=== PATIENT | male | born 1955 | race Caucasian/White ===

== ENCOUNTER 2019-07-09 16:43 | Inpatient (IN) | payer MEDICARE ==
[~2019-07-09] VITALS: Ht 182.9 cm; Wt 134.5 kg
[2019-07-09] MEDS ORDERED: SODIUM POLYSTYRENE SULFONATE 15 GM/60 ML ORAL.SUSP. PO ONE ×2 (18:30→20:00)
[2019-07-09] MEDS ORDERED: FUROSEMIDE 40 MG/4 ML VIAL IVP ONE ×2 (18:30→19:00)
[2019-07-09] MEDS ORDERED: FURO20TA3 PO (18:50)
[2019-07-09] MEDS ORDERED: LISI-334 PO (18:51)
[2019-07-09 18:56] VITALS: BP 128/75
[2019-07-09 19:16] LABS: BASO % 1 % (0-3); EOS % 1 % (0-3); HEMATOCRIT 42.9 % (39.0-53.0); HEMOGLOBIN 13.7 g/dL (13.0-17.5); LYMPH # 0.8 x10^3/uL (1.0-4.8); LYMPH % 12 % (24-48); MEAN CORPUSCULAR HEMOGLOBIN 28 pg (25-35); MEAN CORPUSCULAR HGB CONC 32 g/dL (31-37); MEAN CORPUSCULAR VOLUME 89 fL (79-100); MONO # 0.8 x10^3/uL (0.0-1.1); MONO % 12 % (0-9); NEUT # 4.8 x10^3uL (1.8-7.7); NEUT % 75 % (31-73); PLATELET COUNT 198 x10^3/uL (140-400); RED BLOOD COUNT 4.84 x10^6/uL (4.30-5.70); RED CELL DISTRIBUTION WIDTH 15.5 % (11.5-14.5); WHITE BLOOD COUNT 6.4 x10^3/uL (4.0-11.0)
[2019-07-09 19:37] VITALS: BP 145/88
[2019-07-09 19:41] LABS: ALBUMIN 3.3 g/dL (3.4-5.0); ALBUMIN/GLOBULIN RATIO 0.9 (1.0-1.7); CALCIUM 8.8 mg/dL (8.5-10.1); CREATININE 1.8 mg/dL (0.7-1.3); GFR 38.1; POTASSIUM 5.1 mmol/L (3.5-5.1); TOTAL BILIRUBIN 0.6 mg/dL (0.2-1.0); TOTAL PROTEIN 6.9 g/dL (6.4-8.2)
[2019-07-09] MEDS: HEPARIN for SUB-Q USE 5,000 UNIT/ML VIAL. SQ SCH (21:49)
[2019-07-09 21:53] LABS: BILIRUBIN,URINE NEG (NEG); CLARITY,URINE CLEAR; COLOR,URINE STRAW; GLUCOSE,URINE NEG (NEG)
[2019-07-09 21:54] LABS: BACTERIA,URINE 0 /HPF (0-FEW); NITRITE,URINE NEG (NEG); RBC,URINE 0 /HPF (0-2); SQUAMOUS EPITHELIAL CELL,UR OCC /LPF; UROBILINOGEN,URINE 0.2 mg/dL (0.2 mg/dL); WBC,URINE RARE /HPF (0-4)
[2019-07-09 22:20] VITALS: BP 108/71
[2019-07-10 05:06] VITALS: BP 149/84
[2019-07-10] MEDS: HEPARIN for SUB-Q USE 5,000 UNIT/ML VIAL. SQ SCH ×2 (05:09→15:22)
[2019-07-10 06:48] LABS: CALCIUM 8.7 mg/dL (8.5-10.1); CREATININE 1.7 mg/dL (0.7-1.3); GFR 40.7; POTASSIUM 4.8 mmol/L (3.5-5.1)
[2019-07-10 10:43] VITALS: BP 123/81
--- NOTE | 2019-07-10 10:58 | RAD ---
Exam performed: 2 view chest HISTORY: Shortness of breath. DATE OF SERVICE: 07/09/2019. COMPARISON: None available FINDINGS: PA and lateral views chest findings: Cardiomegaly. Previous median sternotomy and prosthetic valve noted. A prevascular is unremarkable. Lungs are well-expanded and clear. No focal infiltrates, effusion or pneumothorax seen. Bones are normal. IMPRESSION: Cardiomegaly with median sternotomy and prosthetic valve. No acute abnormality seen Electronically signed by: Zandra Burton MD (07/10/2019 10:55 AM) [facility]
--- NOTE | 2019-07-10 13:23 | PDOC ---
PROVIDER NOTE PROVIDER NOTE PROVIDER NOTE Cardiology Consultation Note: Reason for consultation: HF/dyspnea. HPI: 63 y.o male with pmhx as noted below presents to the hospital with exertional dyspnea for a few days. Denies any associated angina, orthopnea or PND. No significant changes to his lower extremity edema/chronic venous stasis. Seen by [facility] on 07/07/2019 and had his amiodarone and metoprolol discontinued. He also had an echo which revealed normal LV function with an EF of 60% and moderate pulmonary HTN. He moved from [place], [place] and had valve/bypass surgery in 2017. Since then he has been overall stable and works at [employer]. Pmhx: 1. CAD s/p CABG per patient 2. Aortic stenosis (probable bicuspid) s/p aortic valve - bioprosthetic 3. HTN 4. DLP 5. ? CKD with Cr baseline unknown Sochx: No alcohol, tob or illicits. Famhx: NC ROS: negative unless otherwise noted above in HPI. ALL: NKDA Meds reviewed: Including lasix and lisinopril. Physical Exam: Constitutional: Well developed, well nourished, no acute distress, non-toxic appearance, positive interaction, playful. HENT: Normocephalic, atraumatic, Eyes: conjunctiva normal, no discharge. Neck: Normal range of motion, no tenderness, supple, no stridor. Cardiovascular: Normal heart rate, normal rhythm, no murmurs, no rubs, no gallops. Thorax and Lungs: Normal breath sounds, no respiratory distress, no wheezing, no chest tenderness, no retractions, no accessory muscle use. Abdomen: Obese, soft. Skin: Warm, dry, no erythema, no rash. Extremeties:1+ radial pulses. Bilateral chronic venous stasis changes. No pitting edema. Musculoskeletal: Good ROM in all major joints, no tenderness to palpation or major deformities noted. Neurologic: Alert and oriented X 3, normal motor function, normal sensory function, no focal deficits noted. Psychologic: Affect normal, judgement normal, mood normal. LABS REVIEWED: CBC wnl Cr 1.8 BNP 2800 EKG: SR CXR: No significant edema. Echo from OSH on 07/07/2019: EF 55%. Moderate pulmonary HTN Impression: 1. Probable acute on chronic diastolic HF 2. CKD - 3. CAD presumed s/p bioprosthetic valve. Plan: 1. Agree with diuresis with lasix. 2. Await OSH records. 3. If no improvement in diuretics and continues to have dyspnea, may need further evaluation with R/LHC 4. Await venous doppler study. Thanks. JULIO CÉSAR BROWN MD Jul 10, 2019 13:23
--- NOTE | 2019-07-10 13:57 | RAD ---
Bilateral Leg Venous Doppler Ultrasound, and 2018 Indication: Bilateral lower extremity swelling Comparison: None available Procedure: Real-time grayscale, color flow color duplex Doppler and spectral analysis are obtained with and without compression in the area of the common femoral vein, superficial femoral vein - femoral vein junction, main femoral vein (superficial femoral vein) and popliteal vein. Veins of the proximal calf are also imaged. Findings: There is normal duplex flow, color flow and compressibility of all visualized vein segments. No evidence of deep venous thrombus is present. Impression: Negative venous Doppler of bilateral lower extremity Electronically signed by: Zandra Burton MD (07/10/2019 1:54 PM) [facility]
[2019-07-10] MEDS ORDERED: HEPARIN for SUB-Q USE 5,000 UNIT/ML VIAL. SQ SCH (14:00)
--- NOTE | 2019-07-10 14:04 | RAD ---
Exam performed: Left lower extremity arterial Doppler. HISTORY: Claudication, left leg pain. DATE OF SERVICE: 07/10/2019. COMPARISON: None available TECHNIQUE: Real-time grayscale, color flow, duplex Doppler and spectral analysis of the left lower extremity arterial system is performed and images are obtained. FINDINGS: Mild scattered plaquing is seen, dose significant calcified atheromatous plaquing is identified. Doppler interrogation reveals normal triphasic waveforms throughout. No areas of focally elevated peak systolic velocities is focal stenosis seen. IMPRESSION: No convincing evidence of focal stenosis seen. Electronically signed by: Zandra Burton MD (07/10/2019 2:01 PM) [facility]
[2019-07-10] MEDS: FUROSEMIDE 40 MG/4 ML VIAL IVP SCH (14:17)
[2019-07-10 14:19] VITALS: BP 138/82
--- NOTE | 2019-07-10 18:39 | RAD ---
NUCLEAR MEDICINE VENTILATION PERFUSION SCAN History: Shortness of air x2 days, elevated d-dimer. Comparison: Two-view chest, prior day. Technique: Patient initially ventilated with 12.5 mCi of xenon-133 gas. Anterior and posterior imaging of the lungs during initial breath-hold, equilibrium and, washout phase images is performed. Perfusion portion performed after intravenous administration of 5.5 mCi Technetium 99m MAA. Multiple projection planar images of the lungs were obtained. Findings: The initial breath-hold ventilation images are homogeneous. There is no significant retention of tracer on the washout phase images. There is markedly decreased perfusion to the right lung compared to the ventilation images. There is central perfusion but there are large mismatched defects in the right upper and lower lobes. There is also a large mismatched defect in the lateral left lower lobe. IMPRESSION: High probability for pulmonary embolus. Findings discussed with Cheryl patient's nurse at 07/10/2019 6:33 PM. FOR INTERNAL CODING PURPOSES Critical result: RESULT CODE: (C) Electronically signed by: Velasquez Jaime MD (07/10/2019 6:36 PM) [id number]
[2019-07-10] MEDS ORDERED: HEPARIN for IV BOLUS 10,000 UNIT/10 ML VIAL. IV PRN ×2 (18:45)
[2019-07-10] MEDS ORDERED: HEPARIN for IV BOLUS 10,000 UNIT/10 ML VIAL. IV ONE (19:00)
[2019-07-10 19:15] VITALS: BP 133/81
[2019-07-10 19:28] LABS: BASO % 1 % (0-3); EOS # 0.1 x10^3/uL (0.0-0.7); EOS % 1 % (0-3); HEMATOCRIT 41.7 % (39.0-53.0); HEMOGLOBIN 13.7 g/dL (13.0-17.5); LYMPH % 15 % (24-48); MEAN CORPUSCULAR HEMOGLOBIN 29 pg (25-35); MEAN CORPUSCULAR HGB CONC 33 g/dL (31-37); MEAN CORPUSCULAR VOLUME 88 fL (79-100); MONO # 0.7 x10^3/uL (0.0-1.1); MONO % 11 % (0-9); NEUT # 4.8 x10^3uL (1.8-7.7); NEUT % 73 % (31-73); PLATELET COUNT 191 x10^3/uL (140-400); RED BLOOD COUNT 4.74 x10^6/uL (4.30-5.70); RED CELL DISTRIBUTION WIDTH 15.5 % (11.5-14.5); WHITE BLOOD COUNT 6.6 x10^3/uL (4.0-11.0)
[2019-07-10] MEDS: HEPARIN 25,000UTS/500ML PREMIX 500 ML IV PRN (20:02)
[2019-07-10 23:10] VITALS: BP 140/83
--- NOTE | 2019-07-11 00:50 | PN ---
DATE: SUBJECTIVE: The patient has been having extreme dyspnea, recently was at [facility] and had his amiodarone and metoprolol decreased or stopped. The patient has a history of coronary artery disease, aortic stenosis, bicuspid valve and bioprosthetic, hypertension, DLP, and CKD. The patient had a surgery done in [place]. Ejection fraction is 60%. The patient seems to be doing a little better this morning. He does have marked venous stasis to his legs with marked hyperpigmentation to the legs themselves and otherwise resting fairly comfortably. OBJECTIVE: VITAL SIGNS: Blood pressure 120/80, respiratory rate 20, pulse 54, afebrile. GENERAL: The patient is alert and oriented. LUNGS: Diminished throughout, poor movement of air, some crackles in the bases, otherwise unremarkable. CARDIOVASCULAR: Regular sinus rhythm, S1, S2. 1/6 systolic ejection murmur. ABDOMEN: Soft, nontender, protuberant. EXTREMITIES: Right leg is markedly swollen compared to that of the left with marked hyperpigmentation to those legs. LABORATORY DATA: Chest x-ray showed cardiomegaly, prosthetic valve, but otherwise unremarkable. The patient otherwise continued to be monitored carefully, make further evaluation on him with venous and arterial Dopplers on his legs and make further evaluation per Cardiology. He is on subcutaneous heparin. He did have a positive D-dimer, which would not be unusual, but he is going to have a V/Q scan because of an elevated creatinine of 1.7, GFR of only 40. We will go ahead and get that performed. IMPRESSION: Exertional dyspnea, artificial valve replacement, severe venous stasis, chronic kidney disease stage 3, elevated BNP of approximately 2900. PLAN: Continue to monitor him, have Cardiology review him and make further adjustments on his medications. AIDE STARKS MD DR: CHRISTIAN/coco JOB#: [id number] / [id number]
[2019-07-11 06:01] VITALS: BP 143/84
[2019-07-11 07:01] LABS: BASO % 1 % (0-3); EOS # 0.1 x10^3/uL (0.0-0.7); EOS % 2 % (0-3); HEMATOCRIT 40.8 % (39.0-53.0); HEMOGLOBIN 13.3 g/dL (13.0-17.5); LYMPH # 1.1 x10^3/uL (1.0-4.8); LYMPH % 20 % (24-48); MEAN CORPUSCULAR HEMOGLOBIN 29 pg (25-35); MEAN CORPUSCULAR HGB CONC 33 g/dL (31-37); MEAN CORPUSCULAR VOLUME 88 fL (79-100); MONO # 0.6 x10^3/uL (0.0-1.1); MONO % 12 % (0-9); NEUT # 3.4 x10^3uL (1.8-7.7); NEUT % 65 % (31-73); PLATELET COUNT 185 x10^3/uL (140-400); RED BLOOD COUNT 4.64 x10^6/uL (4.30-5.70); RED CELL DISTRIBUTION WIDTH 15.2 % (11.5-14.5); WHITE BLOOD COUNT 5.3 x10^3/uL (4.0-11.0)
[2019-07-11 07:07] LABS: CALCIUM 8.9 mg/dL (8.5-10.1); CREATININE 1.6 mg/dL (0.7-1.3); GFR 43.6
[2019-07-11] MEDS: FUROSEMIDE 40 MG/4 ML VIAL IVP SCH (08:17)
[2019-07-11] MEDS: LISINOPRIL 20 MG TABLET PO SCH (08:17)
[2019-07-11] MEDS: HEPARIN 25,000UTS/500ML PREMIX 500 ML IV PRN (09:27)
[2019-07-11 11:33] VITALS: BP 118/71
--- NOTE | 2019-07-11 13:26 | PN ---
DATE: SUBJECTIVE: A 63-year-old gentleman in with shortness of breath and heart failure. The patient had a positive D-dimer. He had bilateral pulmonary emboli according to his pulmonary perfusion scan. He also has decreased renal function. Says he is feeling better on a heparin drip. ALLERGIES: The patient has no known drug allergies. OBJECTIVE: VITAL SIGNS: Blood pressure 143/80, respiratory rate 18, pulse 55 down to 49, afebrile, oxygen saturation 93. GENERAL: The patient otherwise is alert and oriented x 3. Speech is fluent, spontaneous, appropriate. He is more energetic. LUNGS: Diminished throughout, poor movement of air, but clearer than they have been. CARDIOVASCULAR: Regular sinus rhythm. He has history of 2 valves replaced. ABDOMEN: Protuberant, soft, and nontender. EXTREMITIES: No clubbing or cyanosis. Marked hyperpigmentation consistent with venous stasis insufficiency. PLAN: Otherwise, he is continued to be monitored carefully, make further evaluation on him as indicated. Continue on a heparin drip until at least tomorrow and then switch him over to oral. Cardiology to review him as well and make further evaluation on him as indicated. AIDE STARKS MD DR: CHRISTIAN/coco JOB#: [id number] / [id number]
--- NOTE | 2019-07-11 13:41 | PN ---
DATE: SUBJECTIVE: A 63-year-old male in with some chest pain, shortness of breath. The patient's D-dimer elevated. V/Q positive for blood clots bilaterally, so we placed him on a heparin drip. Creatinine is elevated at 1.7. The patient otherwise is resting fairly comfortably, presently on his heparin drip. OBJECTIVE: VITAL SIGNS: Blood pressure 130/80, respiratory rate 18, pulse 52, oxygen saturation 91-93% and afebrile. LUNGS: Clear. CARDIOVASCULAR: Regular sinus rhythm except for the click of his prosthetic valve. ABDOMEN: Soft. EXTREMITIES: No clubbing, cyanosis. Marked hyperpigmentation noted again to the legs consistent with his stasis dermatitis. IMPRESSION: Pulmonary embolus bilaterally. AIDE STARKS MD DR: CHRISTIAN/coco JOB#: [id number] / [id number]
--- NOTE | 2019-07-11 13:47 | RAD ---
Renal ultrasound complete History: Decrease renal function Sonographic examination of the kidneys was performed and multiple static images were obtained. Right kidney: The right kidney is seen with no hydronephrosis and measures 13 cm in length. Left kidney: The left kidney is seen with no hydronephrosis and measures 12 cm in length. Urinary bladder: The urinary bladder appears normal however there is a 124 mm post void residual. Impression: No hydronephrosis. Post void residual in the urinary bladder. Electronically signed by: Anthony Walker III, MD (07/11/2019 1:44 PM) [facility]
--- NOTE | 2019-07-11 14:44 | PDOC ---
PROVIDER NOTE PROVIDER NOTE PROVIDER NOTE No acute events overnight V/Q scan is high probabiliy O: Chronic venous stasis changes. Clear lungs Regular heart tones. Labs reviewed. Imaging reviewed. Impression: 1. mild acute on chronic diastolic HF 2. Dyspnea likely related to P.E. Plan 1. Nothing further from CV standpoint. Await OSH records 2. Continue anticoagulation. 3. Patient does not have mechanical valve, it is bioprosthetic, ok to use eliquis/xarelto for p.e. Thanks. pls call with questions. JULIO CÉSAR BROWN MD Jul 11, 2019 14:44
[2019-07-11 15:33] VITALS: BP 105/77
[2019-07-11 15:50] VITALS: BP 105/77
[2019-07-11 19:28] VITALS: BP 122/77
[2019-07-11 22:46] VITALS: BP 128/85
[2019-07-12] MEDS: HEPARIN 25,000UTS/500ML PREMIX 500 ML IV PRN (00:02)
[2019-07-12 05:24] VITALS: BP 158/92
--- NOTE | 2019-07-12 08:18 | PDOC ---
CARDIO Progress Notes Date & Time Date of Service DATE: 07/12/19 TIME: 08:10 Time of Evaluation 08:10 Subjective Notes breathing much better. Vitals Vitals Vital Signs Date Time Temp Pulse Resp B/P (MAP) Pulse Ox O2 Delivery O2 Flow Rate FiO2 07/12/19 05:24 97.5 58 20 158/92 (114) 92 Room Air 07/11/19 22:46 2.0 Weight Weight [ ] Input and Output I.O. Intake and Output 07/12/19 07:00 Intake Total 2180 ml Output Total 200 ml Balance 1980 ml Intake Oral 1600 ml IV Total 580 ml Output Urine Total 200 ml # Voids 3 Laboratory Labs Laboratory Tests Test 07/10/19 18:45 07/11/19 02:00 07/11/19 06:24 07/11/19 08:40 White Blood Count 6.6 x10^3/uL (4.0-11.0) 5.3 x10^3/uL (4.0-11.0) Red Blood Count 4.74 x10^6/uL (4.30-5.70) 4.64 x10^6/uL (4.30-5.70) Hemoglobin 13.7 g/dL (13.0-17.5) 13.3 g/dL (13.0-17.5) Hematocrit 41.7 % (39.0-53.0) 40.8 % (39.0-53.0) Mean Corpuscular Volume 88 fL (79-100) 88 fL (79-100) Mean Corpuscular Hemoglobin 29 pg (25-35) 29 pg (25-35) Mean Corpuscular Hemoglobin Concent 33 g/dL (31-37) 33 g/dL (31-37) Red Cell Distribution Width 15.5 % (11.5-14.5) 15.2 % (11.5-14.5) Platelet Count 191 x10^3/uL (140-400) 185 x10^3/uL (140-400) Neutrophils (%) (Auto) 73 % (31-73) 65 % (31-73) Lymphocytes (%) (Auto) 15 % (24-48) 20 % (24-48) Monocytes (%) (Auto) 11 % (0-9) 12 % (0-9) Eosinophils (%) (Auto) 1 % (0-3) 2 % (0-3) Basophils (%) (Auto) 1 % (0-3) 1 % (0-3) Neutrophils # (Auto) 4.8 x10^3uL (1.8-7.7) 3.4 x10^3uL (1.8-7.7) Lymphocytes # (Auto) 1.0 x10^3/uL (1.0-4.8) 1.1 x10^3/uL (1.0-4.8) Monocytes # (Auto) 0.7 x10^3/uL (0.0-1.1) 0.6 x10^3/uL (0.0-1.1) Eosinophils # (Auto) 0.1 x10^3/uL (0.0-0.7) 0.1 x10^3/uL (0.0-0.7) Basophils # (Auto) 0.0 x10^3/uL (0.0-0.2) 0.0 x10^3/uL (0.0-0.2) Prothrombin Time 10.6 SEC (9.4-11.4) Prothromb Time International Ratio 1.0 (0.9-1.1) Activated Partial Thromboplast Time 26 SEC (23-33) 87 SEC (23-33) 59 SEC (23-33) Sodium Level 138 mmol/L (136-145) Potassium Level 4.0 mmol/L (3.5-5.1) Chloride Level 104 mmol/L (98-107) Carbon Dioxide Level 28 mmol/L (21-32) Anion Gap 6 (6-14) Blood Urea Nitrogen 32 mg/dL (8-26) Creatinine 1.6 mg/dL (0.7-1.3) Estimated GFR (Cockcroft-Gault) 43.6 Glucose Level 84 mg/dL (70-99) Calcium Level 8.9 mg/dL (8.5-10.1) Test 07/12/19 06:06 Platelet Count 196 x10^3/uL (140-400) Activated Partial Thromboplast Time 47 SEC (23-33) Physical Exams HEENT: Neck Supple W Full Motion Chest: Symmetric Lungs: Clear to Auscultation, Other (diminished bases) Heart: S1S2, RRR, other (2/ systolic murmur ) Abdomen: Soft N/T Extremities: No Edema Neurology: alert, oriented, follow commands Assessment Assessment 1. Mild acute on chronic diastolic HF; Echo 06/2019 with LVEF 60-65% with moderate LVH from [facility] 2. Probable PE; on heparin 3. Hypertension 4. Valvular disease s/p bioprosthetic aortic valve replacement. Normal function noted with recent echo 5. CKD 6. Ascending aortic aneurysm; 4.3 per echo Recommendations Awaiting records from [place] Convert Lasix to oral OAC as per PCP JOVANNY ISLAS APRN Jul 12, 2019 08:18
[2019-07-12] MEDS ORDERED: APIXABAN 5 MG TABLET. PO SCH (09:00)
[2019-07-12] MEDS ORDERED: FUROSEMIDE 40 MG TABLET PO SCH (09:00)
[2019-07-12] MEDS: LISINOPRIL 20 MG TABLET PO SCH (09:00)
--- NOTE | 2019-07-12 09:34 | DS ---
DATE OF DISCHARGE: HOSPITAL COURSE: He is a 63-year-old gentleman, has a history of NM and 2 valves replaced surgery, came in through the Emergency Room extremely short of breath and as a result of this, he has marked venous stasis ulceration. He came with as noted an extremely dyspneic. In any case, the patient made good progress. His D-dimer was positive. We did a V/Q scan and it showed clots bilaterally within the right and left lungs. As a result of this, he was placed on a heparin drip, switched over to Eliquis 10 mg b.i.d. for a week and then 5 b.i.d. for at least 6 months. He is to follow up with his senior tableau developer. His last blood pressure is 158/92, respiratory rate 20, pulse 60. He was afebrile. LABORATORY DATA: His CBC was perfectly normal and his chemistries showed a creatinine of 1.6 with a BUN of 32. Sodium and potassium were basically stable. Cardiac enzymes were negative. His first BNP was almost 2900. Albumin slightly low at 3.3. IMPRESSION: Pulmonary emboli bilaterally, dyspnea, history of previous valve surgery, history of coronary artery disease, moderate protein malnutrition, elevated BNP. The patient will be placed on a heart healthy diet, decreased activity. He will follow up with his senior tableau developer and make further evaluation. AIDE STARKS MD DR: CHRISTIAN/coco JOB#: [id number] / [id number]
[2019-07-12] MEDS ORDERED: FURO40TA4 PO (09:43)
[2019-07-12] MEDS ORDERED: APIX5TAB3 PO (09:43)
[2019-07-12 10:40] VITALS: BP 124/75
== END 2019-07-12 10:55 | disposition home or self-care (01) | DRG 175 ==
LOC: 1 SOUTH 16:43
PROVIDERS: ADMIT Family Medicine; ATTEND Family Medicine
DX: I26.99 Other pulmonary embolism without acute cor pulmonale (principal); I50.33 Acute on chronic diastolic (congestive) heart failure; I13.0 Hypertensive heart and chronic kidney disease with heart failure and stage 1 through stage 4 chronic kidney disease, or unspecified chronic kidney disease; L97.909 Non-pressure chronic ulcer of unspecified part of unspecified lower leg with unspecified severity; E44.0 Moderate protein-calorie malnutrition; Z68.41 Body mass index [BMI] 40.0-44.9, adult; N18.3 Chronic kidney disease, stage 3 (moderate); I25.10 Atherosclerotic heart disease of native coronary artery without angina pectoris; I35.0 Nonrheumatic aortic (valve) stenosis; I71.2 Thoracic aortic aneurysm, without rupture; I83.009 Varicose veins of unspecified lower extremity with ulcer of unspecified site; I87.8 Other specified disorders of veins; I25.2 Old myocardial infarction; Z95.3 Presence of xenogenic heart valve; Z79.01 Long term (current) use of anticoagulants
CPT/HCPCS: 36415; 71046; 76770; 78582; 80048; 80053; 81001; 82550; 83880; 84145; 84484; 85025; 85049; 85379; 85610; 85730; 93926; 93970; 96374; A9540; A9558; J1644; J1940